=== PATIENT | male | born 1955 | race Caucasian/White ===

== ENCOUNTER 2019-03-09 01:59 | Emergency (ER) | payer OTHER ==
[~2019-03-09] VITALS: Ht 175.3 cm; Wt 89.4 kg
[~2019-03-09 01:59] MED LIST: GABA100C14 PO; IBUP800T48 PO; OMEP40CA6 PO
[2019-03-09 02:05] VITALS: BP 129/71; PULSE 86; RESP 18; Ht 175.3 cm; Wt 89.4 kg
[2019-03-09] MEDS ORDERED: KETOROLAC 30 MG INJ IM STA (02:40)
[2019-03-09] MEDS ORDERED: FAMOTIDINE 20 MG TAB PO ONE (03:00)
[2019-03-09] MEDS ORDERED: HYDROCODONE/APAP (10/325) TAB PO ONE (03:00)
== END 2019-03-09 03:59 | disposition home or self-care (01) ==
LOC: FTE 01:59
DX: G56.01 Carpal tunnel syndrome, right upper limb (principal); I10 Essential (primary) hypertension; F17.210 Nicotine dependence, cigarettes, uncomplicated; Z96.641 Presence of right artificial hip joint
CPT/HCPCS: 29125; 73030; 73080; 73110; 96372; 99284; J1885